=== PATIENT | female | born 1980 | race Caucasian/White ===

== ENCOUNTER 2018-08-31 23:07 | Emergency (ER) | payer BC ==
[~2018-08-31] VITALS: Ht 175.3 cm; Wt 68.1 kg
[2018-08-31 23:47] LABS: MEAN CORPUSCULAR HEMOGLOBIN 31.9 pg (27.0-34.8); MEAN CORPUSCULAR HGB CONC 33.4 g/dL (32.4-35.8); MEAN CORPUSCULAR VOLUME 95.5 fL (80-100); RED BLOOD COUNT 4.05 x10^6/uL (3.82-5.3); RED CELL DISTRIBUTION WIDTH 12.9 % (9.6-15.2)
[2018-08-31 23:53] LABS: CULTURE INDICATED? YES
[2018-08-31 23:55] LABS: ALANINE AMINOTRANSFERASE 30 U/L (12-78); ALBUMIN 3.9 g/dL (3.4-5.0); ANION GAP 9 mmol/L (5-15); CALCIUM 8.7 mg/dL (8.5-10.1); CHLORIDE 96 mmol/L (98-107); CREATININE 0.81 mg/dL (0.55-1.02)
[2018-08-31 23:56] LABS: MICROSCOPIC INDICATED
[2018-08-31 23:58] LABS: BASOPHILS % (AUTO) 0 % (0-1); EOSINOPHILS # (AUTO) 0.11 x10^3/uL (0-0.4); EOSINOPHILS % (AUTO) 1 % (1-7); LYMPHOCYTES # (AUTO) 0.66 x10^3/uL (1-3.4); LYMPHOCYTES % (AUTO) 8 % (22-44); MD SCAN; MEAN PLATELET VOLUME 9.8 fL (7.4-10.4); MONOCYTES # (AUTO) 0.37 x10^3/uL (0.2-0.8); MONOCYTES % (AUTO) 5 % (2-9); NEUTROPHILS # (AUTO) 6.71 x10^3/uL (1.8-6.8); NEUTROPHILS % (AUTO) 85 % (42-75); PLATELET COUNT 154 x10^3/uL (130-400)
[2018-08-31 23:59] LABS: ALKALINE PHOSPHATASE 34 U/L (45-117); BILIRUBIN,TOTAL 1.4 mg/dL (0.2-1.0); TOTAL PROTEIN 7.4 g/dL (6.4-8.2)
[2018-09-01] MEDS ORDERED: ONDANSETRON ODT 4 MG ONE (01:13)
[2018-09-01 01:25] LABS: CLOSTRIDIUM DIFFICILE ANTIGEN NEGATIVE; CLOSTRIDIUM DIFFICILE TOXIN NEGATIVE (Negative)
[2018-09-01] MEDS ORDERED: ONDANSETRON ODT 4 MG PO ONE (01:30)
[2018-09-01 02:17] VITALS: BP 118/74
== END 2018-09-01 02:38 | disposition home or self-care (01) ==
LOC: ED 09-01 02:17
DX: A09 Infectious gastroenteritis and colitis, unspecified (principal); E87.1 Hypo-osmolality and hyponatremia
CPT/HCPCS: 36415; 74021; 80053; 81001; 84703; 85025; 87086; 87324; 87329; 89055; 99284; Q0162

== ENCOUNTER 2018-09-01 14:19 | Emergency (ER) | payer BC ==
[~2018-09-01] VITALS: Ht 175.3 cm; Wt 68.8 kg
[2018-09-01 16:03] LABS: ALANINE AMINOTRANSFERASE 36 U/L (12-78); ANION GAP 11 mmol/L (5-15); CALCIUM 8.7 mg/dL (8.5-10.1); CHLORIDE 93 mmol/L (98-107); CREATININE 1.01 mg/dL (0.55-1.02)
[2018-09-01 16:07] LABS: ALKALINE PHOSPHATASE 34 U/L (45-117); BILIRUBIN,TOTAL 1.3 mg/dL (0.2-1.0); TOTAL PROTEIN 7.7 g/dL (6.4-8.2)
[2018-09-01 16:15] LABS: BASOPHILS # (AUTO) 0.02 x10^3/uL (0-0.1); BASOPHILS % (AUTO) 0 % (0-1); EOSINOPHILS # (AUTO) 0.08 x10^3/uL (0-0.4); EOSINOPHILS % (AUTO) 1 % (1-7); LYMPHOCYTES # (AUTO) 0.64 x10^3/uL (1-3.4); LYMPHOCYTES % (AUTO) 6 % (22-44); MD SCAN; MEAN CORPUSCULAR HGB CONC 33.3 g/dL (32.4-35.8); MEAN CORPUSCULAR VOLUME 96.4 fL (80-100); MEAN PLATELET VOLUME 9.9 fL (7.4-10.4); MONOCYTES # (AUTO) 0.56 x10^3/uL (0.2-0.8); MONOCYTES % (AUTO) 6 % (2-9); NEUTROPHILS # (AUTO) 8.82 x10^3/uL (1.8-6.8); NEUTROPHILS % (AUTO) 87 % (42-75); PLATELET COUNT 160 x10^3/uL (130-400); RED BLOOD COUNT 4.22 x10^6/uL (3.82-5.3)
[2018-09-01] MEDS ORDERED: MORPHINE SULFATE 4 MG/ML, 1ML IVPush PRN (17:00)
[2018-09-01] MEDS ORDERED: SODIUM CHLORIDE FLUSH 10ML SYR IVF ONE (17:00)
[2018-09-01] MEDS ORDERED: ONDANSETRON 2MG/ML, 2ML IVPush ONE (17:00)
--- NOTE | 2018-09-01 17:10 | NUR ---
pt presented to ed with abd pain and distention. pt was seen here yesterday for same. pt placed in room and placed on bp and cont. pulse oximeter. pt states that she has urinary retention. pt bladder scanned and read >999ml. kumar catheter inserted with sterile technique.
--- NOTE | 2018-09-01 17:44 | NUR ---
TICO RN: PATIENT TAKEN TO CT. FAMILY AT BS
--- NOTE | 2018-09-01 17:46 | NUR ---
pt refusing pain medications at this time.
--- NOTE | 2018-09-01 17:47 | NUR ---
TICO GALINDO NOTE: PATIETN FROM CT SCAN
[2018-09-01 18:04] LABS: MICROSCOPIC AUTO
[2018-09-01 18:06] VITALS: BP 111/52
[2018-09-01 18:06] LABS: CULTURE INDICATED? YES
--- NOTE | 2018-09-01 20:35 | NUR ---
EMPTIED 3.3 LITERS OF URINE FROM ROLLE BAG. INSTRUCTED ON HOW TO USE LEG BAG AND SWITCH TO BIGGER BAG. PT VERBALIZED UNDERSTANDING. PT DISCHARGED WITH DISCHARGE INSTRUCTIONS AND FOLLOW UP INSTRUCTIONS.
== END 2018-09-01 20:38 | disposition home or self-care (01) ==
LOC: ED 16:17
DX: R33.9 Retention of urine, unspecified (principal); M54.5 Low back pain
CPT/HCPCS: 36415; 51702; 74176; 80053; 81001; 84703; 85025; 87086; 99284